=== PATIENT | female | born 1995 | race Two or more races ===

== ENCOUNTER 2020-10-22 05:31 | Emergency (ER) | payer MEDICAID ==
[~2020-10-22] VITALS: Ht 162.6 cm; Wt 73.5 kg
[~2020-10-22 05:31] MED LIST: IBUP-1222 PO; OXYC-302 PO
--- NOTE | 2020-10-22 05:41 | NUR ---
pt to room, ambulating and in no apparent distress.
[2020-10-22] MEDS ORDERED: ONDANSETRON ODT 4 MG ONE (05:54)
[2020-10-22] MEDS ORDERED: DIPHENHYDRAMINE 25 MG CAPSULE ONE (05:55)
[2020-10-22] MEDS ORDERED: KETOROLAC 30 MG/1 ML ONE (05:55)
[2020-10-22] MEDS ORDERED: KETOROLAC 30 MG/1 ML IM ONE (06:00)
[2020-10-22] MEDS ORDERED: ONDANSETRON ODT 4 MG PO ONE (06:00)
[2020-10-22] MEDS ORDERED: DIPHENHYDRAMINE 25 MG CAPSULE PO ONE (06:00)
--- NOTE | 2020-10-22 06:01 | NUR ---
meds given, IM pain relief, and po meds. pt tolerated well, no distress.
--- NOTE | 2020-10-22 06:52 | NUR ---
report and care given to oncoming RN.
--- NOTE | 2020-10-22 07:16 | NUR ---
RECVD REPORT FROM REKHA RN. ASSUMED CARE OF PATIENT. PT IS RESTING COMFORTABLY, IN NO APPARENT DISTRESS. VERBALIZED NO ADDITIONAL NEEDS AT THIS TIME. CALL LIGHT WITHIN REACH. PENDING COVID RESULT.
[2020-10-22] MEDS ORDERED: HYDROcodone/APAP 5/325 TABLET PO ONE (08:00)
--- NOTE | 2020-10-22 08:44 | NUR ---
20G IV PLACED IN RIGHT AC FOR CT BY NINA RAMIREZ. PATIENT DENIES PAIN AT THIS TIME. RESTING COMFORTABLY, CALL LIGHT WITHIN REACH
[2020-10-22 08:50] LABS: BASOPHILS % (AUTO) 0 % (0-1); EOSINOPHILS % (AUTO) 1 % (1-7); LYMPHOCYTES % (AUTO) 24 % (22-44); MEAN CORPUSCULAR HEMOGLOBIN 30.7 pg (27.0-34.8); MEAN CORPUSCULAR HGB CONC 33.6 g/dL (32.4-35.8); MEAN PLATELET VOLUME 7.9 fL (7.4-10.4); MONOCYTES % (AUTO) 12 % (2-9); NEUTROPHILS % (AUTO) 63 % (42-75); PLATELET COUNT 257 x10^3/uL (130-400); RED BLOOD COUNT 4.78 x10^6/uL (3.82-5.3); RED CELL DISTRIBUTION WIDTH 13.8 % (9.6-15.2)
[2020-10-22 08:52] LABS: MD NO
[2020-10-22 09:00] LABS: ALBUMIN 3.8 g/dL (3.4-5.0); ANION GAP 4 mmol/L (5-15); CALCIUM 8.8 mg/dL (8.5-10.1); CHLORIDE 106 mmol/L (98-107); CREATININE 0.76 mg/dL (0.55-1.02)
[2020-10-22] MEDS ORDERED: OMNIPAQUE 350 MG/ML, 75ML BOTTLE ONE (09:30)
[2020-10-22 10:26] VITALS: BP 105/68
--- NOTE | 2020-10-22 10:28 | NUR ---
Patient/Caregiver given discharge instructions and they have confirmed that they understand the instructions. Patient ambulatory with steady gait.
== END 2020-10-22 11:09 | disposition home or self-care (01) ==
LOC: ED 06:41
DX: U07.1 COVID-19 (principal); J12.9 Viral pneumonia, unspecified
CPT/HCPCS: 71045; 71260; 80048; 82040; 85025; 87635; 96372; 99285; J1885; Q0162; Q0163; Q9967

== ENCOUNTER 2021-05-08 16:38 | Emergency (ER) | payer MEDICAID ==
[~2021-05-08] VITALS: Ht 162.6 cm; Wt 65.5 kg
[~2021-05-08 16:38] MED LIST changes: -OXYC-302 PO; +OXYC1TAB14 PO
[2021-05-08 16:56] VITALS: BP 121/79
== END 2021-05-08 17:23 | disposition home or self-care (01) ==
LOC: ED 17:08
DX: K02.9 Dental caries, unspecified (principal)
CPT/HCPCS: 99283